=== PATIENT | female | born 1940 | race Caucasian/White ===

== ENCOUNTER → 2017-10-23 | Outpatient (CLI) | payer MEDICARE ==
[~2017-10-23] MED LIST: AMLO5; Augmentin 875-1 EACH PO; BUTASPCAFT PO; Bactrim Ds Tab1 EACH PO; GABA300; GABA300 PO; GAVILAX17 GM PO; HYDCHL25 PO; HYDPAM25 PO; HYDURE500 PO; LIDO5TP TOP; LORA1 PO; LOSA25; METCAR500; MOM PO; NORT10; Norco 5-325 Ta1 EACH PO; OMEP20ER PO; OXYACE5T PO; OXYACE7.5T PO; PROM25 PO; RXCYCL10 PO; RXOXYACE PO; TRAM50 PO; TRIA80TC; Zofran Odt4 MG SL
[2017-10-24 13:17] LABS: Stool Occult Bld Immuno 1 Negative (NEGATIVE); Stool Occult Bld Immuno 2 Negative (NEGATIVE)
== END | disposition home or self-care (01) ==
LOC: LAB SHORT 11:30 → LAB 11:30
PROVIDERS: Internal Medicine Gastroenterology
DX: Z12.11 Encounter for screening for malignant neoplasm of colon (principal)
CPT/HCPCS: 82274

== ENCOUNTER 2019-03-09 11:07 | Day surgery (SDC) | payer MEDICARE ==
[~2019-03-09] VITALS: Ht 157.5 cm; Wt 58.8 kg
--- NOTE | 2019-03-09 15:03 | NUR ---
03/09/19 1503 Chelita Brower PATIENT WAS CONCERNED BECAUSE TWO OF HER FINGERS WERE VERY DEEP RED, ALMOST PURPLE. SPOKE WITH DR PICKARD AND HE STATES THIS IS DUE TO HER RAYNAUD'S AND JUST TO WARM HER HANDS. PATIENT WAS GIVEN A WARM BLANKET AND AFTER APPX 5 MINUTES HER FINGERS WERE BACK TO MORNAL COLOR
== END 2019-03-09 15:04 | disposition home or self-care (01) ==
LOC: ORSCSDS 11:07
PROVIDERS: Orthopaedic Surgery
PROC: 0LN70ZZ Release Right Hand Tendon, Open Approach (ICD-10-PCS; principal; 2019-03-09 13:05)
PROC: 0LN80ZZ Release Left Hand Tendon, Open Approach (ICD-10-PCS; principal; 2019-03-09 13:05)
DX: M65.331 Trigger finger, right middle finger (principal); M65.332 Trigger finger, left middle finger; I10 Essential (primary) hypertension; J45.909 Unspecified asthma, uncomplicated; K21.9 Gastro-esophageal reflux disease without esophagitis; F32.9 Major depressive disorder, single episode, unspecified; Z79.899 Other long term (current) drug therapy
CPT/HCPCS: J0171; J0690; J1100; J2405; J2704; J3010; J7120

== ENCOUNTER 2020-04-08 18:41 | Emergency (ER) | payer MEDICARE ==
[~2020-04-08] VITALS: Ht 157.5 cm; Wt 59.0 kg
[~2020-04-08 18:41] MED LIST changes: +ACET500 PO; -AMLO5; +AMLO5 PO; +ATOR10 PO; +BUTALB-ACETAMI1 EAC7 PO; +Calcium Carbon500 MG PO; +DICLOFENAC SOD100 G1 TOP; +DORZOLAMIDE-TIM10 ML RIGHTEYE; -GAVILAX17 GM PO; +LATA.005SO BOTHEYES; -LOSA25; +LOSA25 PO; -METCAR500; +MIRALAX17 GM PO; +Methocarbamol500 MG PO
== END 2020-04-08 21:38 | disposition home or self-care (01) ==
LOC: ER 18:41
DX: S01.81XA Laceration without foreign body of other part of head, initial encounter (principal); E78.5 Hyperlipidemia, unspecified; K21.9 Gastro-esophageal reflux disease without esophagitis; Z91.09 Other allergy status, other than to drugs and biological substances; Z88.1 Allergy status to other antibiotic agents; Z88.5 Allergy status to narcotic agent; Z79.899 Other long term (current) drug therapy; W18.09XA Striking against other object with subsequent fall, initial encounter; Y93.01 Activity, walking, marching and hiking
CPT/HCPCS: 70450; 72125; 73030; 73562-RT; 99283-25

== ENCOUNTER → 2020-12-31 | Outpatient (CLI) | payer MEDICARE | END | disposition home or self-care (01) | LOC: LAB SHORT 11:33 → LAB 11:33 | DX: L57.0 Actinic keratosis (principal); D23.61 Other benign neoplasm of skin of right upper limb, including shoulder | CPT/HCPCS: 88305 ==

== ENCOUNTER 2022-07-02 14:54 | Emergency (ER) | payer MEDICARE ==
[~2022-07-02] VITALS: Ht 154.9 cm; Wt 59.9 kg
== END 2022-07-02 16:50 | disposition home or self-care (01) ==
LOC: ER 14:54
DX: L76.22 Postprocedural hemorrhage of skin and subcutaneous tissue following other procedure (principal); K21.9 Gastro-esophageal reflux disease without esophagitis; E78.5 Hyperlipidemia, unspecified; Y83.8 Other surgical procedures as the cause of abnormal reaction of the patient, or of later complication, without mention of misadventure at the time of the procedure; Z79.899 Other long term (current) drug therapy; Z91.09 Other allergy status, other than to drugs and biological substances; Z88.5 Allergy status to narcotic agent; Z88.8 Allergy status to other drugs, medicaments and biological substances; Z96.651 Presence of right artificial knee joint
CPT/HCPCS: 12001; 99282-25

== ENCOUNTER 2022-12-01 08:35 | Day surgery (SDC) | payer MEDICARE ==
[~2022-12-01] VITALS: Ht 157.5 cm; Wt 56.2 kg
[2022-12-01] MEDS ORDERED: DEXL60CA3 (08:58)
[2022-12-01 11:42] VITALS: BP 122/70
== END 2022-12-01 11:40 | disposition home or self-care (01) ==
LOC: ORSCSDS 08:35
PROVIDERS: Internal Medicine Gastroenterology
PROC: 0DB68ZX Excision of Stomach, Via Natural or Artificial Opening Endoscopic, Diagnostic (ICD-10-PCS; principal; 2022-12-01 10:00)
PROC: 0DJD8ZZ Inspection of Lower Intestinal Tract, Via Natural or Artificial Opening Endoscopic (ICD-10-PCS; principal; 2022-12-01 10:00)
DX: R10.13 Epigastric pain (principal); R11.0 Nausea; K59.00 Constipation, unspecified; K57.30 Diverticulosis of large intestine without perforation or abscess without bleeding; K44.9 Diaphragmatic hernia without obstruction or gangrene; Z79.899 Other long term (current) drug therapy
CPT/HCPCS: 88305; 88342; J2704; J7120

== ENCOUNTER 2023-03-21 17:35 | Emergency (ER) | payer MEDICARE ==
[~2023-03-21] VITALS: Ht 157.5 cm; Wt 59.0 kg
[~2023-03-21 17:35] MED LIST changes: +DEXL60CA3
[2023-03-21 18:07] LABS: BASOPHILS ABSOLUTE AUTO 0.06 K/mm3 (0.00-0.23); BASOPHILS PERCENT AUTO 1 % (0-2); EOSINOPHILS ABSOLUTE AUTO 0.08 K/mm3 (0.00-0.68); EOSINOPHILS PERCENT AUTO 1 % (0-6); Hematocrit 38.2 % (33.0-51.0); IMMATURE GRAN ABSOLUTE AUTO 0.05 K/mm3 (0.00-0.10); IMMATURE GRAN PERCENT AUTO 1 % (0-1); LYMPHOCYTES ABSOLUTE AUTO 1.82 K/mm3 (0.84-5.20); LYMPHOCYTES PERCENT AUTO 23 % (21-46); MONOCYTES ABSOLUTE AUTO 0.45 K/mm3 (0.16-1.47); MONOCYTES PERCENT AUTO 6 % (4-13); Mean Corpuscular HGB 27.6 pg (26.0-34.0); Mean Corpuscular HGB Conc 31.4 g/dL (31.5-36.5); Mean Corpuscular Volume 88 fL (80-100); Mean Platelet Volume 10.3 fL (9.1-12.4); NEUTROPHILS ABSOLUTE AUTO 5.58 K/mm3 (1.96-9.15); NEUTROPHILS PERCENT AUTO 70 % (41-73); Platelet Count 488 K/mm3 (150-400); RDW Coefficient Variation 14.7 % (11.7-14.2); RDW Standard Deviation 47.2 fL (35.1-46.3); Red Blood Cell Count 4.34 M/mm3 (3.80-5.20); White Blood Cell Count 8.04 K/mm3 (4.00-11.30)
[2023-03-21] MEDS ORDERED: METO25 (18:29)
[2023-03-21 18:34] LABS: Albumin/Globulin Ratio 1.4 (0.8-1.8); Bilirubin, Total 0.1 mg/dL (0.1-1.0); Bun/Creatinine Ratio 19.5 (12.0-20.0); Calcium, Blood 9.3 mg/dL (8.5-10.1); Creatinine, Blood 0.92 mg/dL (0.40-1.00); Globulin, Blood 2.9 g/dL (2.2-4.0); Potassium, Blood 4.2 mmol/L (3.5-5.5); Total Protein, Blood 6.9 g/dL (6.4-8.2)
[2023-03-21 19:19] LABS: Magnesium, Blood 2.2 mg/dL (1.6-2.4); Thyroid Stimulating Hormone 0.54 uIU/mL (0.360-4.800)
[2023-03-21 20:00] VITALS: BP 126/59
== END 2023-03-21 20:05 | disposition home or self-care (01) ==
LOC: ER 17:35
PROVIDERS: Physician Assistant; Student in an Organized Health Care Education/Training Program
DX: I47.10 Supraventricular tachycardia, unspecified (principal); R42 Dizziness and giddiness; E78.5 Hyperlipidemia, unspecified; K21.9 Gastro-esophageal reflux disease without esophagitis; Z88.1 Allergy status to other antibiotic agents; Z88.5 Allergy status to narcotic agent; Z91.048 Other nonmedicinal substance allergy status; Z79.899 Other long term (current) drug therapy
CPT/HCPCS: 71046; 80053; 83690; 83735; 84443; 84484; 85025; 93005; 93010; 99285-25

== ENCOUNTER 2024-01-18 12:53 | Inpatient (IN) | payer MEDICARE ==
[~2024-01-18] VITALS: Ht 157.5 cm; Wt 58.5 kg
[~2024-01-18 12:53] MED LIST changes: +BUTRANS1 EAC9 TD; +DICLOFENAC SOD100 GM TOP; +METHIMAZOLE5 M1 PO; +METO25ER PO
[2024-01-18 14:11] LABS: BASOPHILS ABSOLUTE AUTO 0.04 K/mm3 (0.00-0.23); BASOPHILS PERCENT AUTO 1 % (0-2); EOSINOPHILS ABSOLUTE AUTO 0.06 K/mm3 (0.00-0.68); EOSINOPHILS PERCENT AUTO 1 % (0-6); Hemoglobin 11.8 g/dL (11.5-16.0); IMMATURE GRAN ABSOLUTE AUTO 0.08 K/mm3 (0.00-0.10); IMMATURE GRAN PERCENT AUTO 1 % (0-1); LYMPHOCYTES ABSOLUTE AUTO 0.86 K/mm3 (0.84-5.20); LYMPHOCYTES PERCENT AUTO 12 % (21-46); MONOCYTES ABSOLUTE AUTO 0.32 K/mm3 (0.16-1.47); MONOCYTES PERCENT AUTO 5 % (4-13); Mean Corpuscular HGB 33.1 pg (26.0-34.0); Mean Corpuscular HGB Conc 31.9 g/dL (31.5-36.5); Mean Corpuscular Volume 104 fL (80-100); Mean Platelet Volume 10.1 fL (9.1-12.4); NEUTROPHILS PERCENT AUTO 81 % (41-73); Platelet Count 497 K/mm3 (150-400); RDW Coefficient Variation 15.9 % (11.7-14.2); RDW Standard Deviation 59.6 fL (35.1-46.3); Red Blood Cell Count 3.56 M/mm3 (3.80-5.20); White Blood Cell Count 7.16 K/mm3 (4.00-11.30)
[2024-01-18 14:31] LABS: Albumin, Blood 3.5 g/dL (3.4-5.0); Albumin/Globulin Ratio 1.4 (0.8-1.8); Bilirubin, Total 0.4 mg/dL (0.1-1.0); Bun/Creatinine Ratio 18.2 (12.0-20.0); Calcium, Blood 9.1 mg/dL (8.5-10.1); Creatinine, Blood 0.77 mg/dL (0.40-1.00); Globulin, Blood 2.5 g/dL (2.2-4.0); Potassium, Blood 4.2 mmol/L (3.5-5.5)
[2024-01-18] MEDS ORDERED: Pantoprazole Sodium 40 MG Injection IV ONE (18:05)
[2024-01-18] MEDS ORDERED: Ondansetron HCl 2 MG / ML 2ML Vial IV ONE (19:55)
[2024-01-18] MEDS ORDERED: Morphine Sulfate 4 MG/1 ML Injection IV ONE (19:55)
[2024-01-18 23:11] VITALS: BP 136/50
[2024-01-19] MEDS ORDERED: NS 1,000 ML IV SCH (01:25)
[2024-01-19] MEDS ORDERED: FentaNYL Citrate 50 MCG/ML 2 ML Injection IV ONE (02:30)
[2024-01-19] MEDS ORDERED: FLU VACC TS2024-25(6MOS UP)/PF 45 MCG/0.5 ML SYRINGE IM SCH (04:45)
[2024-01-19 05:07] VITALS: BP 125/60
[2024-01-19] MEDS ORDERED: Pantoprazole Sodium 40 MG Injection IV SCH (06:00)
[2024-01-19 06:04] LABS: BASOPHILS ABSOLUTE AUTO 0.04 K/mm3 (0.00-0.23); BASOPHILS PERCENT AUTO 1 % (0-2); EOSINOPHILS ABSOLUTE AUTO 0.06 K/mm3 (0.00-0.68); EOSINOPHILS PERCENT AUTO 1 % (0-6); Hematocrit 34.2 % (33.0-51.0); IMMATURE GRAN ABSOLUTE AUTO 0.02 K/mm3 (0.00-0.10); IMMATURE GRAN PERCENT AUTO 0 % (0-1); LYMPHOCYTES ABSOLUTE AUTO 1.06 K/mm3 (0.84-5.20); LYMPHOCYTES PERCENT AUTO 19 % (21-46); MONOCYTES PERCENT AUTO 5 % (4-13); Mean Corpuscular HGB 32.9 pg (26.0-34.0); Mean Corpuscular HGB Conc 32.2 g/dL (31.5-36.5); Mean Corpuscular Volume 102 fL (80-100); Mean Platelet Volume 10.1 fL (9.1-12.4); NEUTROPHILS ABSOLUTE AUTO 4.03 K/mm3 (1.96-9.15); NEUTROPHILS PERCENT AUTO 73 % (41-73); Platelet Count 471 K/mm3 (150-400); RDW Coefficient Variation 15.9 % (11.7-14.2); RDW Standard Deviation 57.1 fL (35.1-46.3); Red Blood Cell Count 3.34 M/mm3 (3.80-5.20); White Blood Cell Count 5.51 K/mm3 (4.00-11.30)
[2024-01-19 06:29] LABS: Bun/Creatinine Ratio 14.2 (12.0-20.0); Calcium, Blood 9.1 mg/dL (8.5-10.1); Creatinine, Blood 0.7 mg/dL (0.40-1.00); Potassium, Blood 3.7 mmol/L (3.5-5.5)
--- NOTE | 2024-01-19 06:56 | NUR ---
SHIFT SUMMARY PT ARRIVED FROM ER AROUND 2300. ORIENTED TO ROOM. A&Ox4 AND PLEASANT. PT C/O UPPER EPIGASTRIC PAIN ONCE AND MEDICATED WITH GOOD EFFECT. NO EPISODES OF N/V. VSS. SCD's IN PLACE. NS INFUSING AT 100ML/HR. BED IN LOWEST POSITION AND CALL LIGHT IN REACH.
[2024-01-19 07:28] VITALS: BP 124/54
[2024-01-19] MEDS ORDERED: FentaNYL Citrate 50 MCG/ML 2 ML Injection IV PRN (10:10)
[2024-01-19 12:16] LABS: Hematocrit 36.7 % (33.0-51.0); Hemoglobin 11.8 g/dL (11.5-16.0)
[2024-01-19] MEDS ORDERED: BUPRENORPHINE HC2 M1 SL (17:43)
[2024-01-19] MEDS ORDERED: DEXL60CA3 PO (18:05)
--- NOTE | 2024-01-19 18:32 | NUR ---
SHIFT SUMMARY PT IS A&0X4. PT ADMITTED DUE TO HEMATEMESIS. PT REPORTS TENDERNESS AND PAIN IN ABDOMEN. PT REPORTS NO NAUSEA. PT HAS NOT VOMITTED DURING SHIFT. PT ON ROOM AIR. PT HAS TWO IV IN RIGHT ARM. PT RECIEVED PROTONIX. PT REPORTS CHRONIC PAIN IN HER R SHOULDER AND BACK. PT PAIN MANAGED PER EMAR. PT REPORTED RELEIF IN PAIN AFTER ICE COMPRESS ON SHOULDER. PT IS NPO. PLAN IS TO RECIEVE A SCOPE IN AM. PT CALLS APPROPRIATELY. CALL LIGHT IN REACH. VSS. PT WAS AT BEDSIDE DURING SHIFT.
[2024-01-19 19:18] VITALS: BP 127/53
[2024-01-19] MEDS ORDERED: NS 1,000 ML IR SCH (22:05)
--- NOTE | 2024-01-20 03:11 | NUR ---
SHIFT SUMARY: PT ALERT ORIENTED X 4FRIENDLY AND COOPERATIVE WITH CARE REQUIRES SBA TO AMBULATE TO THE BATHROOM. NEW ORDER RECEIVED TONITE TO GIVE HER CLEAR LIQUIDS TILL 0200 THEN MAKE HER NPO. SHES CURRENTLY NPO AT THIS TIME AWAITING UPPER SCOPE THAT WILL BE DONE TODAY. O C/O PAIN OR N/V THIS SHIFT. SHE WAS ABLE TO TAKE IN A CUP OF WATER WITH NO PROBLEMS. SHE WAS STARTED ON NSAT 75. NO EPISODES OF HEMATEMESIS THIS SHIFT. SLEEPING IN BED AT THIS TIME.
[2024-01-20 05:52] VITALS: BP 133/53
[2024-01-20 06:04] LABS: Hematocrit 36.4 % (33.0-51.0); Hemoglobin 11.7 g/dL (11.5-16.0); Mean Corpuscular HGB 33.2 pg (26.0-34.0); Mean Corpuscular HGB Conc 32.1 g/dL (31.5-36.5); Mean Corpuscular Volume 103 fL (80-100); Mean Platelet Volume 10.1 fL (9.1-12.4); Platelet Count 501 K/mm3 (150-400); RDW Coefficient Variation 15.5 % (11.7-14.2); RDW Standard Deviation 57.4 fL (35.1-46.3); Red Blood Cell Count 3.52 M/mm3 (3.80-5.20); White Blood Cell Count 7.37 K/mm3 (4.00-11.30)
[2024-01-20 06:23] LABS: Albumin, Blood 3.2 g/dL (3.4-5.0); Anion Gap 16 mmol/L (3-11); Blood Urea Nitrogen 14 mg/dL (8-24); Bun/Creatinine Ratio 21.4 (12.0-20.0); CO2, Blood 18 mmol/L (21-32); Chloride, Blood 112 mmol/L (98-108); Creatinine, Blood 0.65 mg/dL (0.40-1.00); Glomerular Filtration Rate 87 (60-); Glucose, Blood 55 mg/dL (70-99); Magnesium, Blood 2.2 mg/dL (1.6-2.4); Phosphorus, Blood 3.8 mg/dL (2.5-4.9); Potassium, Blood 3.9 mmol/L (3.5-5.5); Sodium, Blood 142 mmol/L (136-145)
[2024-01-20 07:42] VITALS: BP 133/58
[2024-01-20] MEDS ORDERED: NS 1,000 ML BAG IR SCH (07:55)
[2024-01-20] MEDS ORDERED: NS 500 ML IV SCH (08:00)
[2024-01-20 08:05] VITALS: BP 138/62
--- NOTE | 2024-01-20 08:13 | NUR ---
inTO Day Surgery VIA [facility] FOR EGD. Patient confirms NPO status and agrees with scheduled surgery. NO FOOD SINCE 01/19/24. LAST DRINK OF WATER AT 0200. History, Chart, Medications and Allergies reviewed before start of procedure.Pre-Op teaching done. Pt verbalizes understanding.
[2024-01-20] MEDS ORDERED: Lidocaine HCl 4% 5 ML SDA TOP ONE (08:15)
[2024-01-20] MEDS ORDERED: propofoL 50 ML IV ONE (08:19)
[2024-01-20] MEDS ORDERED: Lidocaine HCl 4% 5 ML SDA ONE (08:20)
--- NOTE | 2024-01-20 08:30 | NUR ---
01/20/24 0830 [facility] Villa History, Chart, Medications and Allergies reviewed before start of procedure.MONITOR INTACT WITH CONTINUOUS PULSE OXIMETRY, CONTINUOUS END TITAL CO2, AND INTERMITTENT BLOOD PRESSURE.3-LEAD EKG REVIEWED WITH PHYSICIAN PRIOR TO START OF PROCEDURE.O2 VIA POM INTACT THROUGHOUT SEDATION/PROCEDURE.See Anesthesia record.
[2024-01-20 14:53] VITALS: BP 126/48
--- NOTE | 2024-01-20 16:46 | NUR ---
DISCHARGE SUMMARY PT DC THIS SHIFT. DC INSTRUCTION GONE OVER WITH PT AND PT SPOUSE. WHOM BOTH STATED UNDERSTANDING. PT WAS ESCORTED TO PRIVATE VEHICLE VIA WHEELCHAIR BY FOILING MACHINE OPERATOR.
== END 2024-01-20 16:56 | disposition home or self-care (01) | DRG 370 ==
LOC: ER 12:53 → ERHOLD 12:54 → MEDS 12:54
PROVIDERS: Family Medicine; Internal Medicine; Physician Assistant; Surgery; ADMIT Internal Medicine
PROC: 0DJ08ZZ Inspection of Upper Intestinal Tract, Via Natural or Artificial Opening Endoscopic (ICD-10-PCS; principal; 2024-01-20 08:30)
DX: K22.6 Gastro-esophageal laceration-hemorrhage syndrome (principal); I10 Essential (primary) hypertension; E78.5 Hyperlipidemia, unspecified; D75.839 Thrombocytosis, unspecified; K21.9 Gastro-esophageal reflux disease without esophagitis; K44.9 Diaphragmatic hernia without obstruction or gangrene; G43.909 Migraine, unspecified, not intractable, without status migrainosus; Z66 Do not resuscitate; E87.8 Other disorders of electrolyte and fluid balance, not elsewhere classified; M19.90 Unspecified osteoarthritis, unspecified site; Z96.651 Presence of right artificial knee joint; Z90.13 Acquired absence of bilateral breasts and nipples; Z79.899 Other long term (current) drug therapy; Z87.11 Personal history of peptic ulcer disease; Z85.3 Personal history of malignant neoplasm of breast; Z90.49 Acquired absence of other specified parts of digestive tract; Z90.710 Acquired absence of both cervix and uterus; Z88.5 Allergy status to narcotic agent; Z88.8 Allergy status to other drugs, medicaments and biological substances; Z91.048 Other nonmedicinal substance allergy status; Z85.820 Personal history of malignant melanoma of skin
CPT/HCPCS: 36415; 74174; 80048; 80053; 80069; 83735; 84484; 85014; 85018; 85025; 85027; 93005; 93010; 96374-59; 96375; 96375-59; 96376; 99285-25; G0378; J2001; J2270; J2405; J2470; J2704; J3010; J7030; J7040; Q9967